=== PATIENT | male | born 1990 | race Caucasian/White ===

== ENCOUNTER 2019-01-13 15:27 | Inpatient (IN) ==
[2019-01-13] MEDS: NS 1,000 ML IV SCH (19:03)
[2019-01-13 19:25] LABS: BASO# 0.01 X1000 (0.0-0.2); BASO% 0.1 % (0.0-0.8); EOS# 0.05 X1000 (0.0-0.7); EOS% 0.7 % (0.0-10.0); HEMOGLOBIN 11.6 g/dL (14.0-18.0); LYMPH# 1.59 X1000 (1.2-3.4); LYMPH% 20.8 % (20.5-51.1); MCH 26.8 PG (27-31); MCHC 34.1 g/dL (33-37); MCV 78.5 FL (81-99); MONO# 0.42 X1000 (0.11-0.59); MONO% 5.5 % (1.7-9.3); MPV 8.8 FL (7.4-10.4); NEUT# 5.59 X1000 (1.4-6.5); NEUT% 72.9 % (42.2-75.2); PLT 341 X1000 (130-400); RBC 4.33 XMIL (4.7-6.1); RDW 13.1 % (11.5-14.5); WBC 7.66 X1000 (4.8-10.8)
[2019-01-13 19:46] LABS: ALB/GLOB RATIO 0.9; ALBUMIN 3.7 g/dL (3.5-5.0); CALCIUM 8.8 mg/dL (8.8-10.2); POTASSIUM 3.2 mmol/L (3.5-5.1); TOTAL BILIRUBIN 0.24 mg/dL (0.20-1.00)
[2019-01-13 19:48] LABS: CREATININE 8.2 mg/dL (0.7-1.2)
[2019-01-13] MEDS: PEPCID IV SCH (21:47)
--- NOTE | 2019-01-13 21:50 | HISTORY AND PHYSICAL ---
CHIEF COMPLAINT: Weakness. Mr. Fernandez 28-year-old white gentleman, [facility] because of weakness. The patient claims he is not feeling good for last 2 days. The patient was feeling weak and dizzy. He did have nausea and vomiting. The patient was not able to keep anything by mouth. The patient had a few loose bowel movements. The patient had unquantified weight loss. The patient was feeling dizzy, at times lightheaded when he was trying to get up. Patient went to the emergency room. Had blood work done. In the ER his creatinine was more than 8, BUN was elevated. Patient is on lisinopril 20 mg for hypertension. Patient has not seen MD over a year. Patient did not have any blood work done lately. Patient was taking [id number] Advil or Motrin for headache and low back pain about 2 to 4 per day on p.r.n. basis. Because of his kidney failure the patient's PMD was here. They called me and I accepted the patient. The patient did have some chills but no fever. Occasional dull headache. Vague low back pain. No typical chest pain. Occasional palpitations. The patient had unquantified weight loss. The patient does have history of depression since his mother about a year ago. Patient is noncompliant to followup with psychiatrist. Not on any medication. No joint swelling or redness. No suicidal or homicidal ideation. No further history available at this time. ALLERGIES: No known drug allergies. MEDICATION: Lisinopril 20 mg p.o. daily. PAST MEDICAL HISTORY: Hypertension, depression, low back pain, at times headache. PERSONAL HISTORY: Single. Nonsmoker. The patient dips tobacco. Lives with the father, fairly independent in activities of daily living. The patient is on disability due to psychological problem. FAMILY HISTORY: Father with hypertension and borderline diabetes. Mother at age 56 told to have liver cancer. REVIEW OF SYSTEMS: As per HPI. Otherwise unobtainable. PHYSICAL EXAMINATION: GENERAL: Young white gentleman in mild distress. VITAL SIGNS: Blood pressure 99/53, pulse 60, respirations 15, temperature 98 degrees. SKIN: Normal turgor. No rash or petechiae. HEENT: Head atraumatic, normocephalic. [place] conjunctivae. Anicteric sclerae. Extraocular muscle movement normal. Fundus cannot be penetrated. Good oral hygiene. No tonsillopharyngeal congestion or exudate. Ears and nose benign. NECK: Supple. No JVD, thyromegaly or lymphadenopathy. CHEST: Bilateral good air entry present. Few basal crepitations. No rales. CARDIOVASCULAR: S1 and S2 heard. No gallop or thrill. ABDOMEN: Soft, globular. Bowel sounds present. No organomegaly or mass. EXTREMITIES: No cyanosis, clubbing. No acute DVT. Peripheral pulsation intact. MUSCULOSKELETAL: Vague tenderness lumbosacral spine. No acute synovitis of the knees. SYSTEM TRAINER: Alert, awake, able to move all 4 limbs. LABORATORY DATA: Revealed WBC count 7.66, hemoglobin 11.6, hematocrit 34, platelet count 341,000. Electrolytes, potassium 3.2, BUN 46, creatinine 8.2. Blood glucose 131. I did order urinalysis result is pending. CONSIDERATION: 1. Hypertension, acute renal failure. We do not have his baseline renal function. 2. Low back pain. 3. Headache . 4. History suggestive of depression. 5. Hypokalemia. PLAN: Will hydrate patient. Renal ultrasound. Patient does have anemia of chronic disease. Repeat blood work. Nephrology consult. Overall plan discussed with the patient and he is in agreement. cc: MD Ashvin Drake MD
[2019-01-13] MEDS ORDERED: TYLENOL PO PRN (23:58)
[2019-01-14] MEDS: NS 1,000 ML IV SCH ×2 (01:45→16:24)
[2019-01-14 07:28] LABS: ALB/GLOB RATIO 0.9; ALBUMIN 3.4 g/dL (3.5-5.0); CALCIUM 8.3 mg/dL (8.8-10.2); POTASSIUM 3.6 mmol/L (3.5-5.1); TOTAL BILIRUBIN 0.2 mg/dL (0.20-1.00); TOTAL PROTEIN 7.2 g/dL (6.3-8.3)
--- NOTE | 2019-01-14 07:31 | EKG Report ---
Test Performed on : 01/13/2019 5:57:55 PM Test Reason : acute kidney injury Blood Pressure : / mmHG Vent. Rate : 083 BPM Atrial Rate : 083 BPM P-R Int : 140 ms QRS Dur : 104 ms QT Int : 390 ms P-R-T Axes : 072 030 037 degrees QTc Int : 458 ms Poor data quality, interpretation may be adversely affected Normal sinus rhythm. Nonspecific T wave abnormality Abnormal ECG When compared with ECG of 12-OCT-2007 10:05, No significant change was found Confirmed by Maximino MAYS, Alvarez Lazo ([id number]) on 01/14/2019 9:31:06 AM
--- NOTE | 2019-01-14 07:33 | Diag Imaging Result Doc PS360 ---
EXAM: CHEST-2 VIEWS HISTORY: hypoxia TECHNIQUE: Chest two views COMPARISON: None. FINDINGS: The lungs are well expanded. The heart is not enlarged. The vessels are not distended. There are no infiltrates. No pleural effusions. IMPRESSION: No acute abnormality. Electronically signed by Franky Zhang 01/14/2019 7:31 AM
[2019-01-14 07:36] LABS: CREATININE 9.1 mg/dL (0.7-1.2)
[2019-01-14] MEDS: PEPCID IV SCH ×2 (08:01→21:04)
--- NOTE | 2019-01-14 08:17 | Diag Imaging Result Doc PS360 ---
EXAM: US RENAL 2 (RETROPER) COMPLETE HISTORY: acute kidney injury TECHNIQUE: Renal ultrasound COMPARISON: None. FINDINGS: The right kidney measures 11.0 x 4.8 x 5.4 cm. Normal renal echotexture and cortical thickness. No renal stone or hydronephrosis. No renal mass. The urinary bladder is not distended. The prostate measures 4.8 cm in maximum diameter. The left kidney measures 11.5 x 4.6 x 5.0 cm. Normal renal echotexture and cortical thickness. No renal stone or hydronephrosis. No renal mass. IMPRESSION: Normal renal ultrasound. Electronically signed by Franky Zhang 01/14/2019 8:15 AM
--- NOTE | 2019-01-14 13:38 | NEPHROLOGY CONSULTATION ---
DATE: 01/14/2019 REASON FOR ADMISSION: Severe weakness. CONSULTING PHYSICIAN: Norman Hernandez MD REASON FOR CONSULT: Acute kidney injury. HISTORY OF PRESENT ILLNESS: Mr. Fernandez is a 28-year-old white male who presented to [facility] approximately 2 weeks ago for increased weakness and decreased urinary output. He again presented yesterday with complaints of weakness and not feeling well for 2 days, complaints of weakness and dizziness associated with nausea and vomiting. States that he has not been able to take anything by mouth. He is normally on lisinopril on an outpatient basis. He denies any episodes of getting too hot in the last several days. States that he is on disability. He did have blood work done at [facility] after being transferred and was found to have a creatinine of 8 and BUN of 46. The patient was subsequently admitted, started on IV fluids of normal saline at 125 mL an hour. He was then transferred to [facility] under the care of Dr. Hernandez for possible hemodialysis. The patient has had vague low back pain, which is chronic. States that he takes approximately 2 to 4 Advil every day for an extended period of time of longer than 1 to 2 years. Denies chest pain. Denies lower extremity swelling no recent rash. No fever or chills. He does state that he has had recent weight loss. He has a history of depression. Mother a year ago. Documented in his H P that he has been noncompliant to follow up with a psychiatrist. He denies having taken any illicit drug use or alcohol consumption. PAST MEDICAL HISTORY: Hypertension, low back pain, depression. SOCIAL HISTORY: Lives with his father. Denies any alcohol or illicit drug use. He is able to perform his ADLs. Currently on disability due to psychological problems. HOME MEDICATIONS: Listed as lisinopril. ALLERGIES: Listed as no known drug allergies. FAMILY HISTORY: Mother at the age of 56 to liver cancer. Father is currently living though has hypertension and borderline diabetes. REVIEW OF SYSTEMS: Times 10 with pertinent positives listed above in the HPI. VITAL SIGNS: Temperature 99.2 degrees, blood pressure 97/44, heart rate 82, respirations 14. He is on room air. Last recorded saturation 98%. He has had 1500 in. He states that he has voided 2 times, though this is not been recorded and he is on strict I's and O's. We have requested that he follow and let the nurses know when he goes to the restroom and voids. LABORATORY DATA: Sodium 135, potassium 3.6, chloride 97, CO2 79, BUN 48, creatinine is up to 9.2 from 8.7, glucose of 94. He has an anion gap of 14, calcium 8.8, phosphorus 3.7. His white count is 7.66, hemoglobin 11.6, hematocrit 34, platelet count 341,000. Renal ultrasound completed this morning shows right kidney measuring 11, left kidney measuring 11.5, no hydronephrosis or mass noted. Normal echotexture bilateral. Urine electrolytes are still pending. PHYSICAL EXAMINATION: General: This is a 28-year-old white male currently lying in bed. He appears chronically ill though no acute distress. Skin: Warm and dry. HEENT: Normocephalic, atraumatic. Conjunctiva is pale, pink. He has YUDITH. Mucous membranes are dry. Neck: Supple. Trachea midline. No evidence of JVD. Cardiovascular: Regular rate and rhythm. No murmur or gallop. Lungs: Clear to auscultation bilaterally. Equal excursion on room air. Abdomen: Soft, nontender, positive bowel sounds. Genitourinary: Not inspected. Patient has been voiding. Extremities: Have no edema, no clubbing, or cyanosis. Integumentary: No rashes or lesions evident. Neurological: He is awake and alert. Moves all extremities. ASSESSMENT AND PLAN: 1. Acute kidney injury secondary to unknown cause. Renal ultrasound is negative. Urine electrolytes are currently pending. His BUN and creatinine are elevated today from his admission. He exhibits no uremic symptoms. He is currently receiving IV fluids of normal saline at 25 mL an hour. His lisinopril is currently on hold. We will continue to monitor and follow. We have spoken to the patient in regards with previous labs. Father indicates that he has had labs at [facility] several weeks ago and has seen Dr. Sanches in the last 2 years. We will attempt to check to see if there are any labs at this time available. 2. Electrolytes and acid-base balance these are acceptable. 3. Anemia. This is low but stable. 4. Weakness. This continues. 5. Nausea and vomiting. This has slowly improved during his hospitalization. Followed by the primary care. I would like to thank you for allowing us to follow with this patient. Dictated by RAJNI Smith for Aldair Okeefe MD Face to face encounter, data reviewed, discussed with Geena Guzman on 01/14/19. I agree with the above assessment and plan of care. cc: RAJNI Smith MD Jagan Reddy, MD [facility]
[2019-01-14 16:49] LABS: UR CREAT RANDOM 295.3 mg/dL (14-26); UR PROT RANDOM 120.1 mg/dL
[2019-01-14 16:51] LABS: URINE SOURCE CLEAN CATCH
[2019-01-14 16:52] LABS: BILIRUBIN URINE NEGATIVE (NEGATIVE); COLOR YELLOW; GLUCOSE URINE NEGATIVE (NEGATIVE); KETONE URINE NEGATIVE (NEGATIVE); SP GRAVITY URINE 1.016; TURBIDITY URINE HAZY (CLEAR); UR EPITHELIAL CELLS <10 /HPF (<10); URINE BACTERIA NEGATIVE /HPF; URINE RBC <10 /HPF (<10); URINE WBC 20-40 /HPF (<10)
[2019-01-14 16:53] LABS: BLOOD URINE TRACE (NEGATIVE); LEUKOCYTES URINE LARGE (NEGATIVE); NITRITE URINE NEGATIVE (NEGATIVE); PH URINE 5.5; PROTEIN URINE 100 mg/dL (NEGATIVE); UROBILINOGEN URINE NORMAL (NORMAL)
[2019-01-14 20:23] LABS: IRON SATURATION 18 %; TIBC 188 ug/dL; TOTAL IRON 34 ug/dL (53-167); UNBOUND IRON 154 ug/dL (112-346)
[2019-01-14 21:26] LABS: UR AMPHETAMINES QUAL NONE DETECTED (NONE DETECT); UR BARBITUATES QUAL NONE DETECTED (NONE DETECT); UR BENZODIAZEPIN QUAL NONE DETECTED (NONE DETECT); UR CANNABINOIDS QUAL NONE DETECTED (NONE DETECT); UR COCAINE QUAL NONE DETECTED (NONE DETECT); UR METHADONE QUAL NONE DETECTED (NONE DETECT); UR OPIATES QUAL NONE DETECTED (NONE DETECT); UR OXYCODONE QUAL NONE DETECTED (NONE DETECT); UR PCP QUAL NONE DETECTED (NONE DETECT)
--- NOTE | 2019-01-14 21:45 | PROGRESS NOTE ---
DATE: 01/14/2019 SUBJECT: Level 3 documentation. 28-year-old white gentleman was seen in my office April 2016 for hypertension. He never had a baseline blood workup. He has been disabled for traumatic brain injury. He has been taking lisinopril for blood pressure. He lives with his father. He had some nausea, vomiting, diarrhea, heme-positive stools, seen in [place], was found to have acute kidney injury, transferred over the weekend by Dr. Hernandez. REVIEW OF SYSTEMS: He feels better. He is not making any urine. Dr. Okeefe consult was obtained. Upon questioning, he has been taking Advil on the regular basis for chronic pain. PAST MEDICAL HISTORY: Reviewed. PAST SURGICAL HISTORY: Reviewed. MEDICINES: Reviewed. ALLERGIES: Not known. EXAMINATION: Temperature is 98 degrees, blood pressure is stable.HEENT: Within normal limits. Neck: Supple. No lymphadenopathy. Chest: Bilateral air entry. Heart: Sounds are regular. Belly: Soft, nontender. Good bowel sounds and no peripheral edema, cyanosis. No obvious neurological deficits. INVESTIGATIONS: CBC. White cell count 7.6, hematocrit 34, platelets 341,000, sedimentation rate 67. Sodium 135, potassium 3.6, BUN 48, creatinine 9.1, A1c 5.0. Iron is low. CRP is high, total protein 7.2, folate is low. Urinalysis with large leukocytes, WBC 20 to 40. Urine random total protein 120. INVESTIGATION: Chest x-ray are stable and will follow up. ASSESSMENT AND PLAN: 1. Acute renal failure. Rule out allergic interstitial nephritis, elevated sedimentation rate and CRP. Check the eosinophils, protein creatinine ratio, urine drug testing. Urine protein electrophoresis. 2. Repeat hepatitis profile, SPEP in the morning. Ultrasound showed no hydronephrosis, normal kidney size. He is not making any urine resulting into acute oliguric renal failure. Continue IV fluids, IV Pepcid, Tylenol as needed. Appreciated Dr. Okeefe's consult. 3. Hypertension on lisinopril, will discontinue. Will check the orthostatic blood pressure and 4. Heme-positive stools. Continue to monitor. LEVEL OF DOCUMENTATION: 35 minutes. cc: Ashvin Sanches MD [facility] HOSPITALJose E
[2019-01-14 21:47] LABS: UR CREAT RANDOM 277.7 mg/dL (14-26)
[2019-01-14 21:48] LABS: UR PROT RANDOM 120.8 mg/dL
[2019-01-14 22:02] LABS: PROTEIN CREAT RATIO 0.44
[2019-01-14] MEDS: FOLIC ACID 5 MG in NS 50 ML IV SCH (22:04)
[2019-01-15] MEDS: NS 1,000 ML IV SCH ×3 (05:05→17:29)
[2019-01-15 07:21] LABS: CALCIUM 8.4 mg/dL (8.8-10.2); POTASSIUM 3.4 mmol/L (3.5-5.1)
[2019-01-15 07:25] LABS: CREATININE 5.9 mg/dL (0.7-1.2)
[2019-01-15] MEDS: PEPCID IV SCH ×2 (08:22→21:35)
[2019-01-15 08:38] LABS: BASO# 0.02 X1000 (0.0-0.2); BASO% 0.4 % (0.0-0.8); EOS# 0.09 X1000 (0.0-0.7); EOS% 1.7 % (0.0-10.0); HEMATOCRIT 29.5 % (42.0-52.0); HEMOGLOBIN 9.7 g/dL (14.0-18.0); LYMPH# 1.93 X1000 (1.2-3.4); LYMPH% 36.8 % (20.5-51.1); MCH 26.2 PG (27-31); MCHC 32.9 g/dL (33-37); MCV 79.7 FL (81-99); MONO# 0.65 X1000 (0.11-0.59); MONO% 12.4 % (1.7-9.3); MPV 8.7 FL (7.4-10.4); NEUT# 2.55 X1000 (1.4-6.5); NEUT% 48.7 % (42.2-75.2); PLT 235 X1000 (130-400); RDW 13.1 % (11.5-14.5); WBC 5.24 X1000 (4.8-10.8)
--- NOTE | 2019-01-15 09:31 | NEPHROLOGY PROGRESS NOTE ---
DATE: 01/15/2019 SUBJECTIVE: He states he has urinated 3 times. He was sitting up in the bed when I arrived. No shortness of breath, nausea, or vomiting. His last episode of emesis was yesterday morning. No diarrhea. OBJECTIVE: Vital Signs: Blood pressure 106/60, heart rate 78, respirations 17, afebrile. Intake 2.1 L, output 1.4 L. General: No acute distress. Skin: Warm and dry. HEENT: Conjunctivae are pink. Oropharynx is dry. Neck: Neck veins are not visible. Heart: Regular. No gallops. Lungs: Equal. No crackles or wheezes. Abdomen: Soft, nontender. Bowel sounds are present. Extremities: No edema, clubbing, or cyanosis. IMPRESSION: Acute kidney injury. Presumed. His urine output is improving. I will await today's laboratory data before making a decision about dialysis. He appears euvolemic. cc: MD Ashvin Rowe MD
[2019-01-15] MEDS: POTASSIUM CHLORIDE 20 MEQ/SWI 20 MEQ/100 ML IVPB IV SCH ×2 (19:30→22:50)
--- NOTE | 2019-01-15 19:38 | PROGRESS NOTE ---
DATE: 01/15/2019 SUBJECTIVE: The patient is doing better and he has started making urine output, which is good sign. Blood pressure is stable. No other complaints. EXAMINATION: Vital Signs: Temp is 98, pulse 73, blood pressure 104/59. Urine output is 1000. Chest: Clear. Heart: Heart sounds are regular. Abdomen: Belly is soft, nontender. Good bowel sounds. Neurologic: No neurological deficits. INVESTIGATIONS: CBC: White cell count 5.2, hematocrit 29.5, platelets 235,000. SMA 7: Sodium 138, potassium 3.4, chloride 106 BUN 47, creatinine 5.9. Urine eosinophiles negative. Protein creatinine ratio 0.4. ASSESSMENT AND PLAN: 1. Acute kidney injury due to Advil, prerenal and no allergic interstitial nephritis symptoms signs noted. Continue IV fluids. 2. Hypokalemia, replace the potassium. 3. Intravenous Pepcid. Follow up on the pending labs. Recheck the electrolytes tomorrow with magnesium and phosphate and will follow. LEVEL OF DOCUMENTATION: 25 minutes. cc: Ashvin Sanches MD
[2019-01-15] MEDS: FOLIC ACID 5 MG in NS 50 ML IV SCH (21:35)
--- NOTE | 2019-01-16 08:06 | NEPHROLOGY PROGRESS NOTE ---
DATE: 01/16/2019 TIME SEEN: 0635. SUBJECTIVE: Mr. Fernandez is resting quietly in bed. His father is at his bedside. He is mostly supine. Has no complaints. OBJECTIVE: Vital Signs: Temperature is 98 degrees, blood pressure 113/61, heart rate 74, respirations 16. He is currently on room air. Last recorded saturation is 99%. He has had 3716 in and 2590 out to void. Labs: These are currently pending. Previous potassium of 3.4, BUN of 47, creatinine 5.9, with a hemoglobin of 9.7. Physical Examination: General: This is a 28-year-old, white male resting quietly in bed. He appears in no acute distress. His skin is warm and dry. HEENT: Normocephalic, atraumatic. Conjunctivae are pale pink. He has YUDITH. Mucous membranes are dry. Neck: Supple. Trachea midline. No evidence of JVD. Cardiovascular: Regular rate and rhythm. He is clear to auscultation bilaterally. Equal excursion, on room air. Abdomen: Slightly round, soft, nontender. Positive bowel sounds. Genitourinary: Not inspected. Patient has been voiding adequate amount. Extremities: Have no edema. No clubbing or cyanosis. Neurological: He is alert and oriented x3. Slow to respond to questions this a.m. ASSESSMENT AND PLAN: 1. Acute kidney injury, more than likely acute tubular necrosis. The patient continues to slowly improve. He had a BUN of 47 with a creatinine of 5.9 yesterday. He had adequate urine output to void. No indications for dialysis intervention. Creatinine now less than 3. rg 2. Electrolytes, acid-base balance, and anemia. These labs are all currently pending. These have been acceptable over the last 24 to 48 hours. I would like to thank you for allowing us to follow with this patient. Dictated by RAJNI Smith for Aldair Okeefe MD Face to face encounter, data reviewed, discussed with Geena Guzman on 01/16/19. I agree with the above assessment and plan of care. rg cc: RAJNI Smith MD Jagan Reddy, MD [facility]
[2019-01-16 08:38] LABS: MAGNESIUM 1.5 mg/dL (1.5-2.7); PHOSPHORUS 3.7 mg/dL (2.7-4.5); POTASSIUM 3.2 mmol/L (3.5-5.1)
[2019-01-16] MEDS ORDERED: KLOR-CON PO ONE (08:46)
[2019-01-16] MEDS: PEPCID IV SCH ×2 (09:15→21:04)
[2019-01-16 12:07] LABS: HEPATITIS PROFILE ACUTE SEE COMMENTS
[2019-01-16] MEDS: NS 1,000 ML IV SCH ×3 (13:28→18:26)
--- NOTE | 2019-01-16 20:42 | PROGRESS NOTE ---
DATE: 01/16/2019 SUBJECTIVE: The patient is getting better. Complains of potassium is burning in the IV. Hemodynamics are stable. He is making good urine output. OBJECTIVE: Vital Signs: Temperature is 97.9 degrees, pulse is 67, blood pressure is 102/66. HEENT: Within normal limits. Neck: Supple. No lymphadenopathy. Chest: Bilateral air entry. Heart: Sounds are regular. Abdomen: Belly is soft, nontender. INVESTIGATIONS: SMA 7: Sodium 137, potassium 3.2, chloride 107, BUN 32, creatinine 2.0, calcium 8.0, magnesium 1.5. Urine cultures are negative. ASSESSMENT AND PLAN: 1. Acute kidney injury is improving. 2. Replace the potassium by mouth. 3. Check the labs in the morning, CBC, SMA 7. If it continues to improve, hopefully he will be discharged on Monday. 4. Explained to the patient's father and will check the CBC in the morning. LEVEL OF DOCUMENTATION: [25] cc: Ashvin Sanches MD [facility]
[2019-01-16] MEDS: FOLIC ACID 5 MG in NS 50 ML IV SCH (21:04)
[2019-01-17] MEDS: NS 1,000 ML IV SCH ×3 (02:04→09:29)
[2019-01-17 07:35] LABS: HEMATOCRIT 27.9 % (42.0-52.0); HEMOGLOBIN 9.2 g/dL (14.0-18.0); MCH 27.1 PG (27-31); MCV 82.3 FL (81-99); MPV 8.8 FL (7.4-10.4); RBC 3.39 XMIL (4.7-6.1); RDW 13.1 % (11.5-14.5); WBC 4.03 X1000 (4.8-10.8)
[2019-01-17 08:11] LABS: MAGNESIUM 1.2 mg/dL (1.5-2.7); PHOSPHORUS 3.4 mg/dL (2.7-4.5)
[2019-01-17 08:35] LABS: AGAP 12; BUN 17 mg/dL (8-22); CALCIUM 8.3 mg/dL (8.8-10.2); CHLORIDE 112 mmol/L (98-107); COSMO 288; CREATININE 1.2 mg/dL (0.7-1.2); ESTIMATED GFR > 60; GLUCOSE 89 mg/dL (70-104); POTASSIUM 3.2 mmol/L (3.5-5.1); SODIUM 144 mmol/L (136-145); TCO2 20 mmol/L (25-35)
[2019-01-17] MEDS: PEPCID IV SCH ×2 (09:30→20:49)
[2019-01-17] MEDS: KLOR-CON PO SCH (09:30)
[2019-01-17] MEDS: SODIUM CHLORIDE 0.9% INJ SCH (09:30)
[2019-01-17] MEDS ORDERED: MAGNESIUM SULFATE 2 GM/S.W.I. 2 GM/50 ML IVPB IV ONE (09:34)
[2019-01-17] MEDS ORDERED: KLOR-CON PO ONE (09:35)
--- NOTE | 2019-01-17 12:52 | PROGRESS NOTE ---
DATE: 01/17/2019 SUBJECTIVE: Mr. Fernandez's potassium is still 3.2. He is on 40 mEq KCl. He says he is feeling better. His leg swelling is better. He has azotemia which is improving. BUN has come down from 30 to 17 and creatinine from 2 to 1.2. His overall condition is improving. As his magnesium has gone down today from 1.5 to 1.2, I am going to add some magnesium on him. He is also being followed by pharmacy service associate. -5 cc: MD Ashvin Huerta MD
--- NOTE | 2019-01-17 13:22 | NEPHROLOGY PROGRESS NOTE ---
DATE: 01/17/2019 SUBJECTIVE: He is sitting up on the side of the bed. No complaints today. OBJECTIVE: Vital Signs: Blood pressure 130/90, heart rate 79, respirations 19, afebrile. Generally: No acute distress. Skin: Warm and dry. HEENT: Conjunctivae are pink. Neck: Neck veins are not distended. Heart: Regular. Lungs: Equal. Abdomen: Soft, nontender. Bowel sounds present. Extremities: Have no edema, clubbing or cyanosis. IMPRESSION AND PLAN: Acute kidney injury, resolved. I will stop his fluids today. We will sign off, but if we can be of further assistance, please do not hesitate to call. cc: MD Ashvin Rowe MD
[2019-01-17] MEDS: MAG-OX PO SCH (20:49)
[2019-01-17] MEDS: FOLIC ACID 5 MG in NS 50 ML IV SCH (22:38)
[2019-01-18 07:32] LABS: BASO# 0.02 X1000 (0.0-0.2); BASO% 0.3 % (0.0-0.8); EOS# 0.13 X1000 (0.0-0.7); HEMATOCRIT 31.9 % (42.0-52.0); HEMOGLOBIN 10.6 g/dL (14.0-18.0); LYMPH% 22.8 % (20.5-51.1); MCH 26.4 PG (27-31); MCHC 33.2 g/dL (33-37); MCV 79.4 FL (81-99); MONO# 0.67 X1000 (0.11-0.59); MONO% 10.2 % (1.7-9.3); MPV 8.9 FL (7.4-10.4); NEUT# 4.25 X1000 (1.4-6.5); NEUT% 64.7 % (42.2-75.2); PLT 297 X1000 (130-400); RBC 4.02 XMIL (4.7-6.1); WBC 6.57 X1000 (4.8-10.8)
[2019-01-18 07:46] LABS: AGAP 14; BUN 9 mg/dL (8-22); CALCIUM 8.6 mg/dL (8.8-10.2); CHLORIDE 105 mmol/L (98-107); COSMO 276; CREATININE 1.1 mg/dL (0.7-1.2); ESTIMATED GFR > 60; GLUCOSE 93 mg/dL (70-104); MAGNESIUM 1.4 mg/dL (1.5-2.7); POTASSIUM 3.1 mmol/L (3.5-5.1); SODIUM 139 mmol/L (136-145); TCO2 20 mmol/L (25-35)
[2019-01-18 07:48] LABS: AGAP 14; ALBUMIN 3.4 g/dL (3.5-5.0); BUN 9 mg/dL (8-22); CALCIUM 8.7 mg/dL (8.8-10.2); CHLORIDE 107 mmol/L (98-107); COSMO 280; CREATININE 1.1 mg/dL (0.7-1.2); ESTIMATED GFR > 60; GLUCOSE 91 mg/dL (70-104); POTASSIUM 3.3 mmol/L (3.5-5.1); SODIUM 141 mmol/L (136-145); TCO2 20 mmol/L (25-35)
[2019-01-18 07:54] VITALS: BP 133/77
[2019-01-18] MEDS ORDERED: MAGNESIUM SULFATE 2 GM/S.W.I. 2 GM/50 ML IVPB IV ONE (08:43)
[2019-01-18] MEDS ORDERED: KLOR-CON PO ONE (08:43)
[2019-01-18] MEDS: SODIUM CHLORIDE 0.9% INJ SCH (09:00)
[2019-01-18] MEDS: PEPCID IV SCH (09:00)
[2019-01-18] MEDS: MAG-OX PO SCH (09:00)
[2019-01-18] MEDS: KLOR-CON PO SCH (09:01)
--- NOTE | 2019-01-18 20:13 | DISCHARGE SUMMARY ---
ADMISSION DATE: 01/13/2019 DISCHARGE DATE: 01/18/2019 DISCHARGE DIAGNOSIS: Acute kidney injury due to prerenal azotemia. SECONDARY DIAGNOSES: 1. Hypertension. 2. Traumatic brain injury. 3. Chronic back pain, dependent on Advil. CONSULTS: Dr. Okeefe. PROCEDURES: 1. Renal ultrasound: Normal renal ultrasound. Right kidney 11 cm, left kidney 11 cm. Prostate was 4.8 cm in diameter. 2. Chest x-ray: No acute abnormality. BRIEF HISTORY: Please see the H and P that was done by Dr. Hernandez. In brief, he is a 28-year- old white gentleman patient of mine, not seen since 04/2016. Basically he was seen in the [facility] with gastroenteritis symptoms associated with acute kidney injury. I did not have baseline creatinine. As I said, he was not seen since 2015. He had a traumatic brain injury. Basically, his father was his refund specialist. He basically sits at home, watching the games and taking the blood pressure medicines and pain medications. His creatinine was 9.0. HOSPITAL COURSE: He was given IV fluids. Lisinopril was stopped. Initial bladder scan was empty. Urine is negative for eosinophils. He has slightly elevated sedimentation rate. Followup hydration renal function tests came back normal. His creatinine level was 1.1. He had a low potassium and magnesium. They were replaced. He has good urine output. He has been tolerating the diet very well. LABORATORY DATA: CBC: White cell count 6.5, hematocrit 31.9, platelets 297,000. Sodium 140, potassium 3.3, chloride 107, BUN 9, creatinine 1.1, calcium 8.7, magnesium 1.4, albumin 3.4. Urine random protein/creatinine ratio 0.4. Hepatitis panel was negative. Urine toxicology screen was negative. Folate 4.4 that has been replaced. Urine cultures were negative. The patient is no longer orthostatic. Blood pressure is doing very well. DISCHARGE INSTRUCTIONS: 1. Hold the lisinopril and Icar-C Plus 1 tablet daily. 2. Avoid Advil, just only Tylenol for pain for the time being. 3. Follow up in my office in 2 weeks for maintenance care for blood pressure, anemia and renal function tests. I discussed the plan of care with the patient's caregiver, his father. cc: MD Aldair Pitt MD
== END 2019-01-18 11:15 | disposition home or self-care (01) | DRG 684 ==
LOC: DIRADM 15:27 → 3N 17:38
PROVIDERS: ADMIT Internal Medicine; ATTEND Internal Medicine
CPT/HCPCS: 71020; 71046; 76770; 80048; 80053; 80069; 80074; 80101; 80301; 80307; 80324; 80345; 80346; 80353; 80358; 80361; 80365; 81001; 82570; 82728; 82746; 83036; 83540; 83550; 83735; 83880; 83992; 84100; 84156; 84166; 84300; 85025; 85027; 85651; 86140; 87088; 87205; 93005; 93010; A9270; G0431; G0434; G0479; G0480; J3475; J3480; J7030; S0028